=== PATIENT | male | born 1950 | race Caucasian/White ===

== ENCOUNTER 2022-09-23 11:21 | Inpatient (IN) ==
--- NOTE | 2022-09-23 11:58 | Emergency Department Note ---
History of Present Illness General Chief complaint: Fall Stated complaint: TROUBLE AMBULATING Time Seen by Provider: 09/23/22 11:55 History of Present Illness Maximum Pain Intensity: 5 This 72-year-old male patient presents to the emergency department via ambulance with his for evaluation after a fall 2 days ago. He states that he fell while carrying the [employer] tree up the front steps into the house. He states that he slipped and fell sideways onto the grass. He denies hitting his head and denies any loss of consciousness, but he is on Coumadin for Afib and h/o CVA. He is able to stand for a brief moment, but unable to tolerate any weightbearing on the right leg and has been unable to walk. Also has pain radiating into the right groin when attempting to stand. He has been mainly sitting on his recliner at home, but even that causes pain. Also having pain in the right shoulder and upper arm as well. Unable to move the right shoulder or arm because of the pain. He does have a history of right-sided hemiplegia from his previous CVA, but his range of motion is decreased even further since the fall. He is concerned for a right hip or pelvis fracture as well as a possible right upper arm fracture. He rates his pain as sharp and 5/10. He states that he stopped taking his Coumadin since after the fall. He has not seen anyone since the fall and the symptoms are getting progressively worse. Denies any neck or back pain. Denies any headache, change in his vision, change in his personality, or other neurologic symptoms. Took Tylenol and some old oxycodone with partial improvement of his pain. No previous fractures to the affected areas. No pain on the left side of his body. Denies any chest pain, SOB, abdominal pain, nausea, or vomiting. Denies any urinary symptoms and has not had a BM since the fall. PMH: iron deficiency anemia, Afib, h/o CVA 2011, Knox's Esophagus, Diabetes, CAD, hyperlipidemia, constipation, GERD, Pacemaker, Sick Sinus Syndrome, HTN, mucinous cystadenocarcinoma of the pancreas MEDS: NTG prn, Diltiazem CD, Crestor, Glucophage, Coumadin, Actos, Avodart, Prinivil, Digoxin, Flomax, Prilosec Home Medications Medication Instructions Recorded Confirmed Type acetaminophen 500 mg tablet 1,000 mg PO QAM 09/23/22 09/23/22 History (Tylenol Extra Strength) digoxin 250 mcg (0.25 mg) tablet 250 mg PO QAM 09/23/22 09/23/22 History diltiazem HCl 120 mg 120 mg PO BID 09/23/22 09/23/22 History capsule,extended release 24 hr dutasteride 0.5 mg capsule 0.5 mg PO QAM 09/23/22 09/23/22 History lisinopril 5 mg tablet 5 mg PO QAM 09/23/22 09/23/22 History metformin 1,000 mg tablet 1,000 mg PO BID 09/23/22 09/23/22 History nitroglycerin 0.4 mg sublingual 0.4 mg sublingual DIRECTED PRN 09/23/22 09/23/22 History tablet (Nitrostat) Chest Pain omeprazole 20 mg capsule,delayed 20 mg PO QAM 09/23/22 09/23/22 History release pioglitazone 30 mg tablet 30 mg PO QAM 09/23/22 09/23/22 History rosuvastatin 40 mg tablet 40 mg PO QAM 09/23/22 09/23/22 History tamsulosin 0.4 mg capsule (Flomax) 0.4 mg PO HS 09/23/22 09/23/22 History warfarin 2.5 mg tablet 2.5 mg PO QAM 09/23/22 09/23/22 History Allergies Allergy/AdvReac Type Severity Reaction Status Date / Time No Known Allergies Allergy Verified 09/23/22 16:12 Past Med/Surg History Medical History (Updated 09/23/22 @ 17:08 by Mai Velazquez PA-C) BPH (benign prostatic hyperplasia) CAD (coronary artery disease) Chronic atrial fibrillation DM II (diabetes mellitus, type II), controlled GERD (gastroesophageal reflux disease) History of embolic stroke LMCA 01/14/15 HLD (hyperlipidemia) HTN (hypertension) SSS (sick sinus syndrome) Surgical History (Updated 09/23/22 @ 16:00 by Mai Velazquez PA-C) S/P CABG x 1 1998 S/P cardiac pacemaker procedure Family History (Updated 09/23/22 @ 16:00 by Mai Velazquez PA-C) Mother Diabetes Cancer Father Cancer Sister Cancer Social History (Updated 09/23/22 @ 16:01 by Mai Velazquez PA-C) Smoking Status: Former smoker Tobacco Type: Cigarettes packs per day: 1; Smoking End Date: 2010; Do You Dip or Chew Tobacco: No; Hx Alcohol Use: Yes Hx Substance Use: No Preferred Language: Israeli Communication Ability: Effective [employer] Service [employer] Required: No Beliefs That Will Affect Care: None Current Living Situation: Spouse Feels Safe at Home: Yes Safety Concerns: Feels Safe At This Time Assistive Devices: Cane and Glasses Assistive Devices Comment: uses cane at home PRN Review of Systems See HPI for pertinent positives & negatives. and A total of 10 systems reviewed and were otherwise negative Physical Exam Vital Signs Vital Signs - 24 hr 09/23/22 11:33 09/23/22 16:00 Temperature 36.7 C Temperature Source Temporal Artery Scan Pulse Rate 83 Pulse Rate [Right Finger] 90 Respiratory Rate 18 14 Respiratory Effort / Characteristics Non-Labored Spontaneous Non-Labored Respiratory Depth Normal Normal Respiratory Pattern Regular Regular Blood Pressure 153/76 H Blood Pressure Mean 101 Blood Pressure Position Sitting Pulse Oximetry 96 91 Oxygen Delivery Method Room Air Room Air Sepsis Recent Fever Within 48 Hours No Sepsis New/Unexplained Change in Mental Status No Sepsis Action Taken by Nursing No Action Required VITALS: Vitals are noted on the nurse's note and reviewed by myself. GENERAL: 72-year-old male, in no acute distress, non-diaphoretic, well-developed well-nourished. SKIN: The skin was without obvious lacerations or abrasions. Capillary reflex less than 2 seconds. HEAD: Normocephalic atraumatic. EARS: External auditory canals clear, tympanic membranes pearly ritter without erythema or effusion bilaterally. No hemotympanum. No olivia sign. No mastoid tenderness. EYES: Pupils equal round and reactive to light and accommodation. Conjunctivae without injection, sclerae without icterus. Extraocular movements intact. NOSE: Patent, turbinates without inflammation or discharge. No sinus tenderness. No septal hematoma or bleeding. FACE: No facial bone tenderness. Full range of motion of the jaw without tenderness. MOUTH: Mucous membranes moist. Pharynx without erythema or exudate. Uvula midline. Airway patent. Tongue does not deviate. NECK: Supple without nuchal rigidity. Cervical spine is nontender. Full range of motion of the neck without tenderness. HEART: Regular rate and rhythm without murmurs gallops or rubs. LUNGS: Clear to auscultation bilaterally without wheezes, rales or rhonchi. No retractions or accessory muscle use. No chest wall tenderness. ABDOMEN: Positive bowel sounds x 4. Normal tympanic percussion. Soft, nontender, without masses or organomegaly. No guarding or rebound tenderness. MUSCULOSKELETAL: No tenderness of the thoracic or lumbar spine. No tenderness with pelvic rocking. Significantly tender to palpation over the right shoulder and mid to proximal right humerus. Unable to move the right shoulder due to pain. No tenderness to palpation of the right elbow, forearm, wrist, or hand. Full range of motion of the right elbow, wrist, and fingers, but it causes pain in the upper arm. He is also tender to palpation into the right groin. Significantly decreased range of motion of the right hip due to pain. No tenderness to palpation over the right femur, knee, tib-fib, ankle, or foot. No tenderness to palpation over the left-sided extremities. Peripheral pulses 2+. NEURO: Patient was alert and oriented to person place and time. Normal Mental status exam. Normal sensation to light and sharp touch. No focal neurological deficits. Course Administered Medications Acetaminophen (Acetaminophen 500 Mg Tab) 1,000 mg PO TID [facility] Stop: 10/23/22 20:59 Last Admin: 09/23/22 21:03 Dose: 1,000 mg Documented By: PURVI Bisacodyl (Bisacodyl 5 Mg Tabec) 5 mg PO BID [facility] Stop: 10/23/22 20:59 Last Admin: 09/23/22 21:04 Dose: 5 mg Documented By: PURVI Diltiazem HCl (Diltiazem Hcl 120 Mg Capcr) 120 mg PO BID [facility] Stop: 10/23/22 20:59 Last Admin: 09/23/22 21:04 Dose: 120 mg Documented By: PURVI Insulin Aspart (Insulin Aspart Per Unit) 0 units SC ACHS [facility] Stop: 10/23/22 20:59 Last Admin: 09/23/22 20:51 Dose: Not Given Documented By: PURVI Co-signed By: DP Morphine Sulfate (Morphine Sulfate 4 Mg/Ml 1 Ml Carp\Vial) 4 mg IV Q6H PRN PRN Reason: Severe pain, rating 8,9,10 Stop: 10/07/22 19:12 Last Admin: 09/23/22 20:59 Dose: 4 mg Documented By: PURVI Polyethylene Glycol (Polyethylene (Miralax) 17 Gm Pack) 17 gm PO DAILY ANA Stop: 10/23/22 19:12 Last Admin: 09/23/22 21:03 Dose: 17 gm Documented By: PURVI Tamsulosin HCl (Tamsulosin Hcl 0.4 Mg Cap) 0.4 mg PO HS ANA Stop: 10/23/22 20:59 Last Admin: 09/23/22 21:04 Dose: 0.4 mg Documented By: PURVI Discontinued Medications Fentanyl Citrate (Fentanyl Citrate 100 Mcg/2 Ml Vial) 50 mcg IV NOW STA Stop: 09/23/22 14:58 Last Admin: 09/23/22 15:34 Dose: Not Given Documented By: MERCEDEZ Fentanyl Citrate (Fentanyl Citrate 100 Mcg/2 Ml Vial) 50 mcg IV NOW STA Stop: 09/23/22 15:46 Last Admin: 09/23/22 16:14 Dose: 50 mcg Documented By: GORDON Ondansetron HCl (Ondansetron Inj 2 Mg/Ml 2 Ml Vial) 4 mg IV NOW STA Stop: 09/23/22 14:58 Last Admin: 09/23/22 15:34 Dose: Not Given Documented By: MERCEDEZ Ondansetron HCl (Ondansetron Inj 2 Mg/Ml 2 Ml Vial) 4 mg IV NOW STA Stop: 09/23/22 15:46 Last Admin: 09/23/22 16:14 Dose: 4 mg Documented By: GORDON Medical Decision Making Differential Diagnosis Differential diagnosis includes fracture, dislocation, subluxation, contusion, pneumothorax, intrathoracic injury, intracranial injury, neurologic, as well as other pathologies. Laboratory Data Attestation: I reviewed the patient's lab results. Result diagrams: 09/23/22 12:40 09/23/22 12:40 Lab Results 09/23/22 09/23/22 09/23/22 Range/Units 12:40 12:40 12:40 WBC 9.45 (4.8-10.8) K/ul RBC 4.72 (4.63-6.08) M/uL Hgb 11.2 L (14.0-18.0) g/dl Hct 35.4 L (40.1-51.0) % MCV 75.0 L (80.0-100.0) fL MCH 23.7 L (25.0-34.0) pg MCHC 31.6 L (32.0-36.0) g/dL RDW Std Deviation 49.7 H (36.4-46.3) fL RDW Coeff of Lonnie 18.8 H (11.5-14.5) % Plt Count 239 (130-400) K/uL MPV 9.1 L (9.4-12.4) fL Immature Gran % (Auto) 0.3 % Neut % (Auto) 81.7 % Lymph % (Auto) 9.5 % Cedar % (Auto) 7.6 % Eos % (Auto) 0.3 % Baso % (Auto) 0.6 % Neut # (Auto) 7.71 H (1.4-6.5) K/uL Lymph # (Auto) 0.90 L (1.2-3.4) K/uL Cedar # (Auto) 0.72 (0.24-0.82) K/uL Eos # (Auto) 0.03 (0-0.50) K/uL Baso # (Auto) 0.06 (0-0.2) K/uL Immature Gran # (Auto) 0.03 H (0.00-0.02) K/uL PT 31.1 H (9.0-12.0) Seconds INR 3.1 H (0.9-1.1) APTT 45.6 H* (21.0-31.0) Seconds PTT Ratio 1.7 Sodium 137 (136-145) mmol/L Potassium 4.1 (3.5-5.1) mmol/L Chloride 104 (98-107) mmol/L Carbon Dioxide 24 (21-32) mmol/L Anion Gap 9 (3-11) BUN 12 (6-23) mg/dl Creatinine 0.66 (0.6-1.4) mg/dl Est Cr Clr Drug Dosing 89.5 ml/min Est GFR ( Amer) 111.9 ml/min Est GFR (Non-Af Amer) 96.6 ml/min BUN/Creatinine Ratio 18.2 (10-20) Glucose 124 H (70-99(Fasting)) mg/dl Calcium 9.2 (8.5-10.1) mg/dl Imaging Data Radiologist's Impression: Chest X-Ray 09/23/22 12:18 SINGLE VIEW CHEST CLINICAL HISTORY: Fall. Dyspnea. FINDINGS: An AP, portable, upright chest radiograph is obtained. No prior studies are available for comparison at the time of dictation. The examination is degraded by portable technique and patient rotation. A single lead cardiac pacemaker partially obscures the right upper chest. The patient is status post midline sternotomy. The heart is enlarged. There is mild pulmonary vascular congestion. Trace pleural effusions are suspected. There is mild bibasilar scarring/atelectasis. No pneumothorax is seen. The skeletal structures are osteopenic. A right humeral head fracture is noted. IMPRESSION: 1. Cardiomegaly and cardiac pacemaker with mild pulmonary vascular congestion. 2. Suspect small pleural effusions. 3. Right humeral head fracture. ACT 112: Negative or not required by law. Electronically signed by: Andre Wallace M.D. 09/23/2022 2:[address] 09/23/22 12:18 CT head/brain wo con CLINICAL HISTORY: fall, coumadin therapy Technique: Contiguous axial CT images of the head were acquired from the base of the skull to the vertex without intravenous contrast administration. Images were viewed in brain, subdural and bone windows. Automated dose lowering techniques and/or adjustment according to patient size were utilized for this exam. Comparison: None available at the time of this dictation. Findings: Encephalomalacia is in the left frontal lobe. Imaged portions of the paranasal sinuses and mastoid air cells are clear. The orbits appear normal. There are no acute fractures of the calvaria or scalp swelling. Impression: No acute intracranial hemorrhage, no evidence of acute territorial infarction or other acute intracranial disease process. ACT 112: Negative or not required by law. Electronically signed by: Rubio Edmonds M.D. 09/23/2022 3:31 PM Hip/Pelvis X-Ray 09/23/22 12:18 XR hip RT 2V w pelvis CLINICAL HISTORY: fall, hip pain TECHNIQUE: 2 views of the right hip and single frontal view of the pelvis were obtained. Comparison: None available at the time of this dictation. FINDINGS: There is no evidence of an acute fracture. Degenerative changes are seen in the hip joint. No soft tissue abnormality is seen. IMPRESSION: Degenerative changes without evidence of acute abnormality. ACT 112: Negative or not required by law. Electronically signed by: Rubio Edmonds M.D. 09/23/2022 2:09 PM Humerus X-Ray 09/23/22 12:18 XR shoulder RT min 2V routine, XR humerus RT 2V CLINICAL HISTORY: fall, shoulder pain TECHNIQUE: 3 views of the right shoulder were obtained and 2 views of the right humerus were obtained. Comparison: None available at the time of this dictation. FINDINGS: Comminuted intra-articular fracture of the humeral head and neck is noted. The glenohumeral articulation is maintained Soft tissue swelling is seen about the shoulder. The visualized portions of the lungs are clear. IMPRESSION: Comminuted fracture of the humeral head and neck with surrounding soft tissue swelling. ACT 112: Negative or not required by law. Electronically signed by: Rubio Edmonds M.D. 09/23/2022 2:07 PM Shoulder X-Ray 09/23/22 12:18 XR shoulder RT min 2V routine, XR humerus RT 2V CLINICAL HISTORY: fall, shoulder pain TECHNIQUE: 3 views of the right shoulder were obtained and 2 views of the right humerus were obtained. Comparison: None available at the time of this dictation. FINDINGS: Comminuted intra-articular fracture of the humeral head and neck is noted. The glenohumeral articulation is maintained Soft tissue swelling is seen about the shoulder. The visualized portions of the lungs are clear. IMPRESSION: Comminuted fracture of the humeral head and neck with surrounding soft tissue swelling. ACT 112: Negative or not required by law. Electronically signed by: Rubio Edmonds M.D. 09/23/2022 2:07 PM MDM Narrative I examined the patient. An IV lock was placed and labs were drawn. The patient initially did not want any medication for pain, but then was given fentanyl 50 mcg IV and Zofran 4 mg IV later during his stay for his pain. Hemoglobin low at 11.2 which the patient states is around his normal. He is currently undergoing work-up for iron deficiency anemia through his PCP. INR 3.1 and a PTT 45.6 on Coumadin. However, he states that he has not taken his Coumadin since the fall. Glucose elevated at 124, but BMP otherwise unremarkable. I interpreted the imaging and agree with the radiologist's reading as per the data section of the note. Chest x-ray showed cardiomegaly and cardiac pacemaker with mild pulmonary vascular congestion and suspecting small pleural effusions. X-rays of the right shoulder and humerus showed a comminuted fracture of the humeral head and neck with surrounding soft tissue swelling. X-rays of the right hip and pelvis show nondisplaced fractures in the right and inferior pubic rami, but no fracture of the hip. CT scan of the head without contrast showed no acute intracranial etiology. I had a meaningful discussion about this patient with Dr. Mccrackne. They agree with my assessment and the treatment plan. The patient lives with his at home and has been unable to ambulate or or do his normal activities of daily living since the fall. The patient's does not feel that she can properly take care of the patient at home even with us getting him a wheelchair. I discussed the case with the on-call hospitalist who agreed to admit the patient for further evaluation and treatment. Please refer to their dictation for further details. The the patient's care was transferred in stable condition. Impression & Plan Fall, Fracture of multiple pubic rami, Fracture of head of right humerus, History of Coumadin therapy Discharge Plan Visit Data Chief Complaint: Fall Stated Complaint: TROUBLE AMBULATING ED Provider: Baljinder Mccracken ED Midlevel Provider: Flaquita Strong Discharge Problem: Fall, Fracture of multiple pubic rami, Fracture of head of right humerus, History of Coumadin therapy Patient Disposition: Admitted As Inpatient Condition: Good Discharge Instructions Interventions: ED Discharge Assessment Last Done: 09/23/22 19:12 : Fall Qualifiers: Encounter type: initial encounter Qualified Code(s): W19.XXXA - Unspecified fall, initial encounter Fracture of multiple pubic rami Qualifiers: Encounter type: initial encounter Fracture type: closed Laterality: right Qualified Code(s): S32.591A - Other specified fracture of right pubis, initial encounter for closed fracture Fracture of head of right humerus Qualifiers: Encounter type: initial encounter Fracture type: closed Qualified Code(s): S42.291A - Other displaced fracture of upper end of right humerus, initial encounter for closed fracture
[2022-09-23 12:52] LABS: Basophils # (auto) 0.06 K/uL (0-0.2); Basophils % (auto) 0.6 %; Eosinophils # (auto) 0.03 K/uL (0-0.50); Eosinophils % (auto) 0.3 %; Hematocrit (blood only) 35.4 % (40.1-51.0); Hemoglobin 11.2 g/dl (14.0-18.0); Immature Granulocytes # (auto) 0.03 K/uL (0.00-0.02); Immature Granulocytes % (auto) 0.3 %; Lymphocytes % (auto) 9.5 %; Mean Corpuscular Hemoglobin 23.7 pg (25.0-34.0); Mean Corpuscular Hgb Conc 31.6 g/dL (32.0-36.0); Mean Platelet Volume 9.1 fL (9.4-12.4); Monocytes # (auto) 0.72 K/uL (0.24-0.82); Monocytes % (auto) 7.6 %; Neutrophils # (auto) 7.71 K/uL (1.4-6.5); Neutrophils % (auto) 81.7 %; Platelet Count 239 K/uL (130-400); RDW Coefficient of Variation 18.8 % (11.5-14.5); RDW Standard Deviation 49.7 fL (36.4-46.3); Red Blood Count 4.72 M/uL (4.63-6.08); White Blood Count 9.45 K/ul (4.8-10.8)
[2022-09-23 13:18] LABS: INR 3.1 (0.9-1.1); Partial Thromboplastin Ratio 1.7; Prothrombin Time 31.1 Seconds (9.0-12.0)
[2022-09-23 13:32] LABS: BUN Creatinine Ratio 18.2 (10-20); Calcium 9.2 mg/dl (8.5-10.1); Creatinine Clr Calc Pharmacy 89.5 ml/min; Est GFR (African American) 111.9 ml/min; Est GFR (Non-African American) 96.6 ml/min; Potassium 4.1 mmol/L (3.5-5.1)
[2022-09-23 13:45] LABS: Partial Thromboplastin Time 45.6 Seconds (21.0-31.0)
--- NOTE | 2022-09-23 14:09 | XRay Report ---
XR shoulder RT min 2V routine, XR humerus RT 2V CLINICAL HISTORY: fall, shoulder pain TECHNIQUE: 3 views of the right shoulder were obtained and 2 views of the right humerus were obtained . Comparison: None available at the time of this dictation. FINDINGS: Comminuted intra-articular fracture of the humeral head and neck is noted. The glenohumeral articulat ion is maintained Soft tissue swelling is seen about the shoulder. The visualized portions of the marlee gs are clear. IMPRESSION: Comminuted fracture of the humeral head and neck with surrounding soft tissue swelling. ACT 112: Negative or not required by law. Electronically signed by: Rubio Edmonds M.D. 09/23/2022 2:07 PM
--- NOTE | 2022-09-23 14:11 | XRay Report ---
XR hip RT 2V w pelvis CLINICAL HISTORY: fall, hip pain TECHNIQUE: 2 views of the right hip and single frontal view of the pelvis were obtained. Comparison: None available at the time of this dictation. FINDINGS: There is no evidence of an acute fracture. Degenerative changes are seen in the hip joint. No soft ti ssue abnormality is seen. IMPRESSION: Degenerative changes without evidence of acute abnormality. ACT 112: Negative or not required by law. Electronically signed by: Rubio Edmonds M.D. 09/23/2022 2:09 PM
--- NOTE | 2022-09-23 14:14 | XRay Report ---
SINGLE VIEW CHEST CLINICAL HISTORY: Fall. Dyspnea. FINDINGS: An AP, portable, upright chest radiograph is obtained. No prior studies are available for c omparison at the time of dictation. The examination is degraded by portable technique and patient rot ation. A single lead cardiac pacemaker partially obscures the right upper chest. The patient is statu s post midline sternotomy. The heart is enlarged. There is mild pulmonary vascular congestion. Trace pleural effusions are suspected. There is mild bibasilar scarring/atelectasis. No pneumothorax is see n. The skeletal structures are osteopenic. A right humeral head fracture is noted. IMPRESSION: 1. Cardiomegaly and cardiac pacemaker with mild pulmonary vascular congestion. 2. Suspect small pleural effusions. 3. Right humeral head fracture. ACT 112: Negative or not required by law. Electronically signed by: Andre Wallace M.D. 09/23/2022 2:13 PM
[2022-09-23] MEDS ORDERED: fentaNYL citrate 100 MCG/2 ML VIAL IV STA ×2 (14:57→15:45)
[2022-09-23] MEDS ORDERED: ONDANSETRON INJ 2 MG/ML 2 ML VIAL IV STA ×2 (14:57→15:45)
--- NOTE | 2022-09-23 15:33 | CT Scan Report ---
CT head/brain wo con CLINICAL HISTORY: fall, coumadin therapy Technique: Contiguous axial CT images of the head were acquired from the base of the skull to the tamera namrata without intravenous contrast administration. Images were viewed in brain, subdural and bone [facility] ws. Automated dose lowering techniques and/or adjustment according to patient size were utilized for this exam. Comparison: None available at the time of this dictation. Findings: Encephalomalacia is in the left frontal lobe. Imaged portions of the paranasal sinuses and mastoid air cells are clear. The orbits appear normal. There are no acute fractures of the calvaria or scalp swelling. Impression: No acute intracranial hemorrhage, no evidence of acute territorial infarction or other acute intracra nial disease process. ACT 112: Negative or not required by law. Electronically signed by: Rubio Edmonds M.D. 09/23/2022 3:31 PM
--- NOTE | 2022-09-23 16:07 | History & Physical Report ---
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 after midnight in case of surgical procedure tomorrow morning -INR is 3.1, patient stopped taking this 2 days ago after his initial fall, can consider 2.5 mg IV vitamin K if Ortho deems to proceed with surgery tomorrow. -Patient has 50% functionality of the right and lower extremity secondary to CVA in 2010, he is unsure if he would want surgical procedure in general. -PT/OT consults -Pain control with Tylenol [id number], oxycodone as needed, IV morphine sulfate prn for breakthrough pain only -Bowel regimen ordered -Continue (4) Chronic atrial fibrillation: (5) Anticoagulated on warfarin: Plan: - Hx of such, holding coumadin x 2 days so far, can reverse INR with Vit K if planned surgery, if not then continue coumadin pending INR level tomorrow (6) HTN (hypertension): Plan: - Cont digoxin, diltiazem, lisinopril (7) HLD (hyperlipidemia): Plan: - Cont statin therapy - Check lipids with am labs (8) CAD (coronary artery disease): Plan: - hx of CABG x 1 vessel in 1998 - hx of smoking but quit in 2010, alcohol use of 1 drink per week - Continue antihypertensives as above - s/p SSS with cardiac pacemaker in place (9) DM II (diabetes mellitus, type II), controlled: Plan: - Check A1c with a.m. labs -Holding metformin and pioglitazone -ISS with Accu-Cheks ACHS -Allow heart healthy diabetic diet (10) BPH (benign prostatic hyperplasia): Plan: -Continue Flomax and dutasteride (11) GERD (gastroesophageal reflux disease): Plan: -Continue omeprazole 20 mg daily DVT PPx: - teds, scds, holding Coumadin as above secondary to possible surgical procedure CODE: DNR/DNI Dispo: From home, likely to remain in the hospital x 1-2 days, case management to assist with discharge planning for PT/OT and possible inpatient rehab stay History of Present Illness Chief Complaint: Fall 2 days ago Primary Care Provider: Yessica Avila, This is a 72 with PMHx CAD, chronic A. fib on Coumadin, HTN, HLD, history of SSS status post cardiac pacemaker, DM type II, GERD, BPH, hx of CVA in 2010 with right sided hemiplegia, who presents today after a fall he sustained 2 days ago while attempting to bring a [employer] tree inside his home. He denies any preceding lightheadedness, dizziness or LOC or hitting of the head with the fall. Patient fell onto his right side, and has had very much difficulty walking over the past 2 days and doing anything with his right arm. He has been able to toe touch weight bear with the right leg, and uses a cane at baseline. He can walk upwards of 1 mile at a time prior to this event. Pt notes he has also not been able do much on his own, even getting dressed due to the right shoulder pain is difficult. Pt has been using a few oxycodone tablets at home to help with the pain. Upon imaging studies, he is found to have a right humeral head fracture as well as a right-sided pubic rami fracture. INR is elevated at 3.1 upon admission, but the patient stopped taking his Coumadin 2 days ago after his fall. Typically takes 2.5 mg daily. Allergies Allergy/AdvReac Type Severity Reaction Status Date / Time No Known Allergies Allergy Verified 09/23/22 16:12 Home Medications Medication Instructions Recorded Confirmed Type acetaminophen 500 mg tablet 1,000 mg PO QAM 09/23/22 09/23/22 History (Tylenol Extra Strength) digoxin 250 mcg (0.25 mg) tablet 250 mg PO QAM 09/23/22 09/23/22 History diltiazem HCl 120 mg 120 mg PO BID 09/23/22 09/23/22 History capsule,extended release 24 hr dutasteride 0.5 mg capsule 0.5 mg PO QAM 09/23/22 09/23/22 History lisinopril 5 mg tablet 5 mg PO QAM 09/23/22 09/23/22 History metformin 1,000 mg tablet 1,000 mg PO BID 09/23/22 09/23/22 History nitroglycerin 0.4 mg sublingual 0.4 mg sublingual DIRECTED PRN 09/23/22 09/23/22 History tablet (Nitrostat) Chest Pain omeprazole 20 mg capsule,delayed 20 mg PO QAM 09/23/22 09/23/22 History release pioglitazone 30 mg tablet 30 mg PO QAM 09/23/22 09/23/22 History rosuvastatin 40 mg tablet 40 mg PO QAM 09/23/22 09/23/22 History tamsulosin 0.4 mg capsule (Flomax) 0.4 mg PO HS 09/23/22 09/23/22 History warfarin 2.5 mg tablet 2.5 mg PO QAM 09/23/22 09/23/22 History Past Med/Surg History Medical History (Updated 09/23/22 @ 17:08 by Mai Velazquez PA-C) BPH (benign prostatic hyperplasia) CAD (coronary artery disease) Chronic atrial fibrillation DM II (diabetes mellitus, type II), controlled GERD (gastroesophageal reflux disease) History of embolic stroke LMCA 01/14/15 HLD (hyperlipidemia) HTN (hypertension) SSS (sick sinus syndrome) Surgical History (Updated 09/23/22 @ 16:00 by Mai Velazquez PA-C) S/P CABG x 1 1998 S/P cardiac pacemaker procedure Family History (Updated 09/23/22 @ 16:00 by Mai Velazquez PA-C) Mother Diabetes Cancer Father Cancer Sister Cancer Social History (Updated 09/23/22 @ 16:01 by Mai Velazquez PA-C) Smoking Status: Former smoker Tobacco Type: Cigarettes packs per day: 1; Smoking End Date: 2010; Hx Alcohol Use: Yes Hx Substance Use: No Feels Safe at Home: Yes Review of Systems Review of Systems: Constitutional: No fever, sweats or chills Eyes: No diplopia, no worsening or blurred vision ENT: normal hearing, no trouble swallowing Respiratory: No cough, sputum, dyspnea at rest or on exertion Cardiovascular: No chest pain, tightness or palpitations Abdomen: No pain, nausea, vomiting, diarrhea or constipation Musculoskeletal: + Severe right shoulder pain with movement, + Difficulty walking, pain with weight bearing on the right hip. Otherwise, no joint pain, calf pain, swelling Neurologic: +hx of CVA with right sided hemiplegia, chronic right sided weakness, no numbness/tingling, + chronic balance problems Psychiatric: No anxiety or depression Skin: No rash or itch Physical Exam Physical Exam: General: awake, alert, no apparent distress Head: Normocephalic, atraumatic ENT: PERRL, EOMI, no pharyngeal exudate, mucous membranes moist Chest: Clear to auscultation, on room air, no adventitious breath sounds Cardiac: Regular rate and rhythm, no murmur, no JVD, normal peripheral pulses, good capillary refill Abdominal: NABS x 4 quadrants, soft, nondistended, nontender to palpation, no rebound or guarding Extremities: Ecchymosis of the medial biceps RUE, + Pain with minimal movement of the right upper extremity, Atrophy of muscles of the RUE. Otherwise Normal inspection, no peripheral edema or erythema, calfs nontender to palpation Psych: Normal mood and affect Neuro: AAO x 3, strength intact bilaterally and rated 3/5 RUE, 5/5 LUE, gait is not assessed due to pubic rami fracture, speech is clear, no peripheral sensory deficits Results & Data Results & Data ([facility]) Vital Signs (Past 12 Hours) Vital Signs Temp Pulse Resp BP Pulse Ox O2 Del Method 09/23/22 11:33 36.7 C 83 18 153/76 H 96 Room Air Laboratory Results 09/23/22 09/23/22 09/23/22 12:40 12:40 12:40 WBC 9.45 RBC 4.72 Hgb 11.2 L Hct 35.4 L MCV 75.0 L MCH 23.7 L MCHC 31.6 L RDW Std Deviation 49.7 H RDW Coeff of Lonnie 18.8 H Plt Count 239 MPV 9.1 L Immature Gran % (Auto) 0.3 Neut % (Auto) 81.7 Lymph % (Auto) 9.5 [place] % (Auto) 7.6 Eos % (Auto) 0.3 Baso % (Auto) 0.6 Neut # (Auto) 7.71 H Lymph # (Auto) 0.90 L [place] # (Auto) 0.72 Eos # (Auto) 0.03 Baso # (Auto) 0.06 Immature Gran # (Auto) 0.03 H PT 31.1 H INR 3.1 H APTT 45.6 H* PTT Ratio 1.7 Sodium 137 Potassium 4.1 Chloride 104 Carbon Dioxide 24 Anion Gap 9 BUN 12 Creatinine 0.66 Est Cr Clr Drug Dosing 89.5 Est GFR ( Amer) 111.9 Est GFR (Non-Af Amer) 96.6 BUN/Creatinine Ratio 18.2 Glucose 124 H Calcium 9.2 Diagnostic Findings Chest X-Ray 09/23/22 12:18 SINGLE VIEW CHEST CLINICAL HISTORY: Fall. Dyspnea. FINDINGS: An AP, portable, upright chest radiograph is obtained. No prior studies are available for comparison at the time of dictation. The examination is degraded by portable technique and patient rotation. A single lead cardiac pacemaker partially obscures the right upper chest. The patient is status post midline sternotomy. The heart is enlarged. There is mild pulmonary vascular congestion. Trace pleural effusions are suspected. There is mild bibasilar scarring/atelectasis. No pneumothorax is seen. The skeletal structures are osteopenic. A right humeral head fracture is noted. IMPRESSION: 1. Cardiomegaly and cardiac pacemaker with mild pulmonary vascular congestion. 2. Suspect small pleural effusions. 3. Right humeral head fracture. ACT 112: Negative or not required by law. Electronically signed by: Andre Wallace M.D. 09/23/2022 2:[address] 09/23/22 12:18 CT head/brain wo con CLINICAL HISTORY: fall, coumadin therapy Technique: Contiguous axial CT images of the head were acquired from the base of the skull to the vertex without intravenous contrast administration. Images were viewed in brain, subdural and bone windows. Automated dose lowering techniques and/or adjustment according to patient size were utilized for this exam. Comparison: None available at the time of this dictation. Findings: Encephalomalacia is in the left frontal lobe. Imaged portions of the paranasal sinuses and mastoid air cells are clear. The orbits appear normal. There are no acute fractures of the calvaria or scalp swelling. Impression: No acute intracranial hemorrhage, no evidence of acute territorial infarction or other acute intracranial disease process. ACT 112: Negative or not required by law. Electronically signed by: Rubio Edmonds M.D. 09/23/2022 3:31 PM Hip/Pelvis X-Ray 09/23/22 12:18 XR hip RT 2V w pelvis CLINICAL HISTORY: fall, hip pain TECHNIQUE: 2 views of the right hip and single frontal view of the pelvis were obtained. Comparison: None available at the time of this dictation. FINDINGS: There is no evidence of an acute fracture. Degenerative changes are seen in the hip joint. No soft tissue abnormality is seen. IMPRESSION: Degenerative changes without evidence of acute abnormality. ACT 112: Negative or not required by law. Electronically signed by: Rubio Edmonds M.D. 09/23/2022 2:09 PM Humerus X-Ray 09/23/22 12:18 XR shoulder RT min 2V routine, XR humerus RT 2V CLINICAL HISTORY: fall, shoulder pain TECHNIQUE: 3 views of the right shoulder were obtained and 2 views of the right humerus were obtained. Comparison: None available at the time of this dictation. FINDINGS: Comminuted intra-articular fracture of the humeral head and neck is noted. The glenohumeral articulation is maintained Soft tissue swelling is seen about the shoulder. The visualized portions of the lungs are clear. IMPRESSION: Comminuted fracture of the humeral head and neck with surrounding soft tissue swelling. ACT 112: Negative or not required by law. Electronically signed by: Rubio Edmonds M.D. 09/23/2022 2:07 PM Shoulder X-Ray 09/23/22 12:18 XR shoulder RT min 2V routine, XR humerus RT 2V CLINICAL HISTORY: fall, shoulder pain TECHNIQUE: 3 views of the right shoulder were obtained and 2 views of the right humerus were obtained. Comparison: None available at the time of this dictation. FINDINGS: Comminuted intra-articular fracture of the humeral head and neck is noted. The glenohumeral articulation is maintained Soft tissue swelling is seen about the shoulder. The visualized portions of the lungs are clear. IMPRESSION: Comminuted fracture of the humeral head and neck with surrounding soft tissue swelling. ACT 112: Negative or not required by law. Electronically signed by: Rubio Edmonds M.D. 09/23/2022 2:07 PM Code Status & VTE Plan Code Status DNR/DNI - discussed with the patient and his at bedside Supervising Physician Co-Signing Physician Notes 72-year-old man with PMH of T2DM, mucinous cyst adenocarcinoma pancreas, CAD status post CABG 1998 and stent 2010, sick sinus syndrome, chronic A. fib, co ronary arthrosclerosis, HTN, GERD, BPH, CVA with residual right-sided hemiparesis presented to our ED 09/23 after sustaining fall by slipping on stairs step 2 days ago [facility]. Patient reports pain at right shoulder/arm bearable when not moving and exacerbated pain even with slight movement. Labs are reviewed, hemoglobin around baseline, INR 3.1, electrolytes WNL. Chest x-ray with mild pulmonary vascular congestion, right humerus fracture and inferior pubic rami fracture noted. Orthopedics consult. Pain management, bowel regimen, n.p.o. midnight until orthopedic evaluation in AM. RCRI index of class IV risks with 15% risks of 30-day risks of or NC or cardiac arrest if plan is to go with surgery given history of CAD and stroke. No previous diagnosis of CHF. 2020 echo with EF of 55 to 60% with normal left ventricular size and ejection fraction. Continue to hold warfarin for now, if orthopedics plan to proceed with surgery then 2.5 Mg IV vitamin K. On examination: GENERAL: Alert and oriented x3. NAD, on RA. HEENT: No pallor, no icterus. Pupils equal, round and reactive to light. Oral mucosa moist. NECK: No JVD, no neck masses. HEART: S1 and S2 heard. Regular rate and rhythm. No murmur, no gallop. RESPIRATORY SYSTEM: Normal AP diameter. No accessory muscle use. No wheezing, no crackles. ABDOMEN: Soft, bowel sounds present, nontender, no distention. CENTRAL NERVOUS SYSTEM: No facial droop. Speech is clear. Obeys simple commands. Moves extremities. EXTREMITIES: No edema, no erythema seen. Rt extremity flexed and rested on top of chest, medial aspect of arm w/ bruise, decreased ROM w/ pain. I have seen and examined the patient and have discussed the case with the provider above. I agree with the assessment and plan as stated. (1) Fracture of multiple pubic rami Encounter type: initial encounter Fracture type: closed Laterality: right Qualified Code(s): S32.591A - Other specified fracture of right pubis, initial encounter for closed fracture (2) Fracture of head of right humerus Encounter type: initial encounter Fracture type: closed Qualified Code(s): S42.291A - Other displaced fracture of upper end of right humerus, initial encounter for closed fracture (3) Fall Encounter type: initial encounter Qualified Code(s): W19.XXXA - Unspecified fall, initial encounter
[2022-09-23] MEDS ORDERED: GLUCAGON FOR INJ 1 MG VIAL SQ PRN (19:13)
[2022-09-23] MEDS ORDERED: CARBOHYDRATES FOR HYPOGLYCEMIA PO PRN (19:13)
[2022-09-23] MEDS ORDERED: GLUCOSE 40% GEL 15 GM TUBE PO PRN (19:13)
[2022-09-23] MEDS ORDERED: ONDANSETRON INJ 2 MG/ML 2 ML VIAL IV PRN (19:13)
[2022-09-23] MEDS ORDERED: DEXTROSE 50% 50 ML SYRINGE IV PRN (19:13)
[2022-09-23] MEDS ORDERED: GLUCOSE 10 TAB/TUBE PO PRN (19:13)
[2022-09-23] MEDS: MoRPHine SULFATE 4 MG/ML 1 ML CARP\\VIAL IV PRN (20:59)
[2022-09-23] MEDS ORDERED: INSULIN ASPART PER UNIT SC SCH (21:00)
[2022-09-23] MEDS: ACETAMINOPHEN 500 MG TAB PO SCH (21:03)
[2022-09-23] MEDS: POLYETHYLENE (MIRALAX) 17 GM PACK PO SCH (21:03)
[2022-09-23] MEDS: TAMSULOSIN HCL 0.4 MG CAP PO SCH (21:04)
[2022-09-23] MEDS: dilTIAZem HCL 120 MG CAPCR PO SCH (21:04)
[2022-09-23] MEDS: bisacodyL 5 MG TABEC PO SCH (21:04)
[2022-09-23] MEDS: oxyCODONE HCL IR 5 MG TAB (IMMEDIATE RELEASE) PO PRN (22:46)
[2022-09-23] MEDS: DUTASTERIDE - ORDER AWAITING ACTION SCH (23:01)
[2022-09-24] MEDS: MoRPHine SULFATE 4 MG/ML 1 ML CARP\\VIAL IV PRN ×3 (04:19→23:16)
[2022-09-24] MEDS: oxyCODONE HCL IR 5 MG TAB (IMMEDIATE RELEASE) PO PRN ×3 (06:00→19:49)
[2022-09-24] MEDS: INSULIN ASPART PER UNIT SC SCH ×4 (06:00→20:02)
[2022-09-24 08:08] LABS: Hematocrit (blood only) 34.8 % (40.1-51.0); Mean Corpuscular Hemoglobin 23.9 pg (25.0-34.0); Mean Corpuscular Hgb Conc 31.6 g/dL (32.0-36.0); Mean Corpuscular Volume 75.5 fL (80.0-100.0); Mean Platelet Volume 9.5 fL (9.4-12.4); Platelet Count 218 K/uL (130-400); RDW Coefficient of Variation 18.5 % (11.5-14.5); RDW Standard Deviation 49.6 fL (36.4-46.3); Red Blood Count 4.61 M/uL (4.63-6.08); White Blood Count 6.94 K/ul (4.8-10.8)
[2022-09-24 08:20] LABS: INR 2.3 (0.9-1.1); Prothrombin Time 23.5 Seconds (9.0-12.0)
[2022-09-24 08:28] LABS: BUN Creatinine Ratio 13.1 (10-20); Calcium 8.6 mg/dl (8.5-10.1); Chol HDL Ratio 1.8 (0-5); Creatinine Clr Calc Pharmacy 96.8 ml/min; Est GFR (African American) 115.6 ml/min; Est GFR (Non-African American) 99.8 ml/min; Potassium 4.4 mmol/L (3.5-5.1)
[2022-09-24 08:49] LABS: Estimated Average Glucose 140 mg/dl; Hemoglobin A1C 6.5 % (4.5-5.6)
[2022-09-24] MEDS: DUTASTERIDE - ORDER AWAITING ACTION SCH ×3 (09:19→20:03)
[2022-09-24] MEDS: ACETAMINOPHEN 500 MG TAB PO SCH ×3 (09:25→20:05)
[2022-09-24] MEDS: bisacodyL 5 MG TABEC PO SCH ×2 (09:25→20:06)
[2022-09-24] MEDS: PANTOprazole 40 MG TAB PO SCH (09:26)
[2022-09-24] MEDS: ROSUVASTATIN CALCIUM 20 MG TAB PO SCH (09:26)
[2022-09-24] MEDS: POLYETHYLENE (MIRALAX) 17 GM PACK PO SCH (09:26)
[2022-09-24] MEDS: dilTIAZem HCL 120 MG CAPCR PO SCH ×2 (09:26→20:01)
[2022-09-24] MEDS: lisinopril 5 MG TAB PO SCH (09:26)
--- NOTE | 2022-09-24 13:11 | Consultation Report ---
HISTORY OF PRESENT ILLNESS: The patient is a 72-year-old male tripped while going up the steps. Pre sents with a minimally to nondisplaced right proximal humerus fracture and right superior and inferio r pubic ramus fracture. He has no other complaints today. Had no other syncopal episode or other is sues. Spoke with he and his , who is a nurse at bedside. Discussed the OT, PT to get him up and get him mobilized so we can get him discharged. She is comfortable taking care of him at home. We will make arrangements for a sling for a proximal humerus fracture and ambulation with weightbearing as tolerated for his pubic ramus fracture and follow up as an outpatient. ASSESSMENT: Fracture of proximal humerus. Satisfactory alignment position, sling, weightbearing as t olerated for pubic ramus fracture. Job ID: [id number]
--- NOTE | 2022-09-24 14:45 | Hospitalist Progress Note ---
Date of Service September 24, 2022 Assessment & Plan (1) Fall: (2) Fracture of head of right humerus: (3) Fracture of multiple pubic rami: Plan: -Fall sounds to be mechanical secondary to history of CVA with residual right- sided paresis, no lightheadedness ,dizziness or LOC, no injury to the head sustained -Imaging reviewed:Nondisplaced fracture within the right and inferior pubic rami, Right humeral head fracture -Ortho evaled, WBAT for pubic rami #, sling for humerus #. f/u ortho as OP. -PT/OT consults, CM to assist w/ DC planning. -Pain control with Tylenol [id number], oxycodone as needed, IV morphine sulfate prn for breakthrough pain only -Bowel regimen ordered -Continue (4) Chronic atrial fibrillation: (5) Anticoagulated on warfarin: Plan: - Hx of such, c/w home warfarin. (6) HTN (hypertension): Plan: - Cont digoxin, diltiazem, lisinopril (7) HLD (hyperlipidemia): Plan: - Cont statin therapy - Check lipids with am labs (8) CAD (coronary artery disease): Plan: - hx of CABG x 1 vessel in 1998 - hx of smoking but quit in 2010, alcohol use of 1 drink per week - Continue antihypertensives as above - s/p SSS with cardiac pacemaker in place (9) DM II (diabetes mellitus, type II), controlled: Plan: - Check A1c with a.m. labs -Holding metformin and pioglitazone -ISS with Accu-Cheks ACHS -Allow heart healthy diabetic diet (10) BPH (benign prostatic hyperplasia): Plan: -Continue Flomax and dutasteride (11) GERD (gastroesophageal reflux disease): Plan: -Continue omeprazole 20 mg daily DVT PPx: - teds, scds, holding Coumadin as above secondary to possible surgical procedure CODE: DNR/DNI Dispo: From home, likely to remain in the hospital x 1-2 days, case management to assist with discharge planning for PT/OT and possible inpatient rehab stay Admission and Anticipated Discharge Date Admission Date: September 23, 2022 Subjective Patient seen and examined at bedside as a follow-up of mechanical fall and fracture of head of right humerus. Patient was lying in bed, on room air, reports pain with movement on his right upper extremity, patient was n.p.o. until orthopedic evaluation, starting him on diet as no plan for interventional management. Patient to continue with bowel regimen as he will be needing more for his pain management as he has history of constipation. Patient offers no other complaints. Physical Exam Physical Exam: GENERAL: Alert and oriented x3. NAD, on RA. HEENT: No pallor, no icterus. Pupils equal, round and reactive to light. Oral mucosa moist. NECK: No JVD, no neck masses. HEART: S1 and S2 heard. Regular rate and rhythm. No murmur, no gallop. RESPIRATORY SYSTEM: Normal AP diameter. No accessory muscle use. No wheezing, no crackles. ABDOMEN: Soft, bowel sounds present, nontender, no distention. CENTRAL NERVOUS SYSTEM: No facial droop. Speech is clear. Obeys simple commands. Moves extremities. EXTREMITIES: No edema, no erythema seen. Rt extremity flexed and rested on top of chest, medial aspect of arm w/ bruise, decreased ROM w/ pain. Results & Data Results & Data ([facility]) Vital Signs (Past 12 Hours) Vital Signs Temp Pulse Pulse Resp BP Pulse Ox O2 Del Method 09/24/22 12:00 37.7 C H 92 H 18 132/68 95 Nasal Cannula 09/24/22 08:00 79 09/24/22 08:01 37.0 C 86 18 134/72 95 Nasal Cannula 09/24/22 04:12 37.4 C 70 18 131/70 93 Nasal Cannula O2 Flow Rate 09/24/22 12:00 09/24/22 08:00 09/24/22 08:01 2 09/24/22 04:12 1 (1) Fall Encounter type: initial encounter Qualified Code(s): W19.XXXA - Unspecified fall, initial encounter (2) Fracture of head of right humerus Encounter type: initial encounter Fracture type: closed Qualified Code(s): S42.291A - Other displaced fracture of upper end of right humerus, initial encounter for closed fracture (3) Fracture of multiple pubic rami Encounter type: initial encounter Fracture type: closed Laterality: right Qualified Code(s): S32.591A - Other specified fracture of right pubis, initial encounter for closed fracture
[2022-09-24] MEDS ORDERED: WARFARIN SOD 2.5 MG TAB PO SCH (16:00)
[2022-09-24] MEDS ORDERED: DIGOXIN 0.25 MG TAB PO SCH (16:00)
[2022-09-24] MEDS: TAMSULOSIN HCL 0.4 MG CAP PO SCH (20:02)
[2022-09-25] MEDS: oxyCODONE HCL IR 5 MG TAB (IMMEDIATE RELEASE) PO PRN ×2 (05:56→14:09)
[2022-09-25 07:19] LABS: Hematocrit (blood only) 35.1 % (40.1-51.0); Hemoglobin 11.3 g/dl (14.0-18.0); Mean Corpuscular Hemoglobin 23.8 pg (25.0-34.0); Mean Corpuscular Hgb Conc 32.2 g/dL (32.0-36.0); Mean Corpuscular Volume 74.1 fL (80.0-100.0); Mean Platelet Volume 9.6 fL (9.4-12.4); Platelet Count 230 K/uL (130-400); RDW Coefficient of Variation 18.2 % (11.5-14.5); RDW Standard Deviation 48.4 fL (36.4-46.3); Red Blood Count 4.74 M/uL (4.63-6.08); White Blood Count 7.55 K/ul (4.8-10.8)
[2022-09-25 07:31] LABS: INR 1.9 (0.9-1.1)
[2022-09-25 07:51] LABS: BUN Creatinine Ratio 24.2 (10-20); Calcium 8.5 mg/dl (8.5-10.1); Creatinine Clr Calc Pharmacy 95.1 ml/min; Est GFR (African American) 114.9 ml/min; Est GFR (Non-African American) 99.1 ml/min; Potassium 4.2 mmol/L (3.5-5.1)
[2022-09-25] MEDS: PANTOprazole 40 MG TAB PO SCH (08:02)
[2022-09-25] MEDS: dilTIAZem HCL 120 MG CAPCR PO SCH (08:02)
[2022-09-25] MEDS: DUTASTERIDE - ORDER AWAITING ACTION SCH (08:02)
[2022-09-25] MEDS: ROSUVASTATIN CALCIUM 20 MG TAB PO SCH (08:03)
[2022-09-25] MEDS: lisinopril 5 MG TAB PO SCH (08:03)
[2022-09-25] MEDS: ACETAMINOPHEN 500 MG TAB PO SCH ×2 (08:05→14:09)
[2022-09-25] MEDS: bisacodyL 5 MG TABEC PO SCH (08:05)
[2022-09-25] MEDS: POLYETHYLENE (MIRALAX) 17 GM PACK PO SCH (08:06)
[2022-09-25] MEDS: MoRPHine SULFATE 4 MG/ML 1 ML CARP\\VIAL IV PRN (08:13)
[2022-09-25] MEDS: INSULIN ASPART PER UNIT SC SCH ×2 (09:22→12:20)
--- NOTE | 2022-09-25 11:53 | Discharge Summary ---
Discharge Summary Date of Service September 25, 2022 Notes For Next Care Provider Needs to follow up with orthopedic outpatient Medication Changes From Visit Discharged on prn oxycodone for severe pain not controlled by tylenol Admission HPI Per Admitting Provider This is a 72 with PMHx CAD, chronic A. 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 He denies any preceding lightheadedness, dizziness or LOC or hitting of the head with the fall. Patient fell onto his right side, and has had very much difficulty walking over the past 2 days and doing anything with his right arm. He has been able to toe touch weight bear with the right leg, and uses a cane at baseline. He can walk upwards of 1 mile at a time prior to this event. Pt notes he has also not been able do much on his own, even getting dressed due to the right shoulder pain is difficult. Pt has been using a few oxycodone tablets at home to help with the pain. Upon imaging studies, he is found to have a right humeral head fracture as well as a right-sided pubic rami fracture. INR is elevated at 3.1 upon admission, but the patient stopped taking his Coumadin 2 days ago after his fall. Typically takes 2.5 mg daily. Admission Exam Per Admitting Provider General: awake, alert, no apparent distress Head: Normocephalic, atraumatic ENT: PERRL, EOMI, no pharyngeal exudate, mucous membranes moist Chest: Clear to auscultation, on room air, no adventitious breath sounds Cardiac: Regular rate and rhythm, no murmur, no JVD, normal peripheral pulses, good capillary refill Abdominal: NABS x 4 quadrants, soft, nondistended, nontender to palpation, no rebound or guarding Extremities: Ecchymosis of the medial biceps RUE, + Pain with minimal movement of the right upper extremity, Atrophy of muscles of the RUE. Otherwise Normal inspection, no peripheral edema or erythema, calfs nontender to palpation Psych: Normal mood and affect Neuro: AAO x 3, strength intact bilaterally and rated 3/5 RUE, 5/5 LUE, gait is not assessed due to pubic rami fracture, speech is clear, no peripheral sensory deficits Principal Dx & Hospital Course #1 = Principal Diagnosis (1) Fall: (2) Fracture of head of right humerus: (3) Fracture of multiple pubic rami: Mechanical fall History of CVA with residual right-sided paresis, no lightheadedness ,dizziness or LOC, no injury to the head sustained Imaging reviewed:Nondisplaced fracture within the right and inferior pubic rami, Right humeral head fracture Ortho evaluated. No surgical intervention recommended. WBAT for pubic rami fracture and sling for right humerus fracture. Patient to follow up with ortho outpatient Home devices prescription had been provided Discharged on prn tylenol for pain and oxycodone for severe pain not controlled by tylenol (4) Chronic atrial fibrillation: (5) Anticoagulated on warfarin: Continue with home warfarin. (6) HTN (hypertension): Continue home medications (7) HLD (hyperlipidemia): Continue home statin therapy (8) CAD (coronary artery disease): Hx of CABG x 1 vessel in 1998 Hx of smoking but quit in 2010, alcohol use of 1 drink per week s/p SSS with cardiac pacemaker in place (9) DM II (diabetes mellitus, type II), controlled: A1c is 6.5 Continue home metformin and pioglitazone (10) BPH (benign prostatic hyperplasia): Continue Flomax and dutasteride (11) GERD (gastroesophageal reflux disease): Continue omeprazole 20 mg daily Discharge Exam Constitutional + well hydrated; no acute distress Eyes PERRL, conjunctivae normal, anicteric sclerae ENMT external ear and nose normal, oropharynx normal Respiratory normal respiratory effort, lungs clear to auscultation Cardiovascular Rate/Rhythm: + irregularly irregular S1 S2 Gastrointestinal (Abdomen) normal bowel sounds, soft, nontender, no hepatosplenomegaly Musculoskeletal RUE in sling No pedal edema Neurologic PERRL, EOMI, accommodation nl, no face palsy, no dysarthria Psychiatric A+Ox3, euthymic affect Updated Medication List Medication Instructions Recorded Confirmed Type acetaminophen 500 mg tablet 1,000 mg PO QAM 09/23/22 09/23/22 History (Tylenol Extra Strength) digoxin 250 mcg (0.25 mg) tablet 250 mg PO QAM 09/23/22 09/23/22 History diltiazem HCl 120 mg 120 mg PO BID 09/23/22 09/23/22 History capsule,extended release 24 hr dutasteride 0.5 mg capsule 0.5 mg PO QAM 09/23/22 09/23/22 History lisinopril 5 mg tablet 5 mg PO QAM 09/23/22 09/23/22 History metformin 1,000 mg tablet 1,000 mg PO BID 09/23/22 09/23/22 History nitroglycerin 0.4 mg sublingual 0.4 mg sublingual DIRECTED PRN 09/23/22 09/23/22 History tablet (Nitrostat) Chest Pain omeprazole 20 mg capsule,delayed 20 mg PO QAM 09/23/22 09/23/22 History release pioglitazone 30 mg tablet 30 mg PO QAM 09/23/22 09/23/22 History rosuvastatin 40 mg tablet 40 mg PO QAM 09/23/22 09/23/22 History tamsulosin 0.4 mg capsule (Flomax) 0.4 mg PO HS 09/23/22 09/23/22 History warfarin 2.5 mg tablet 2.5 mg PO QAM 09/23/22 09/23/22 History oxycodone 5 mg tablet 5 mg PO Q6H PRN moderate to severe 09/25/22 Rx pain #28 tabs Hospital Stay Data Consultations 09/23/22 16:12 ED Decision to Admit Stat 09/23/22 17:02 Consult Orthopedic Surgery Routine Diagnostic Imagining Performed 09/23/22 12:18 CT head/brain wo con Stat Pending Results Patient Have Any Pending Studies at Discharge: No Discharge Instructions Given to Patient (Per Discharging Provider) Mr Peters. You came to the hospital after a fall. Evaluation noted right humerus fracture as well as fracture of of the pubic rami. You were evaluated by Orthopedic surgeon. No surgical intervention recommended at this time. Please use sling as instructed. Please ensure follow up with your Primary Doctor. Use tylenol as needed for pain. Use oxycodone as needed for pain not controlled by tylenol. It was a pleasure taking care of you. Total Time Total Time Spent Total Time Spent (In Minutes): 45 Total Time Includes: Examination of the Patient, Discharge Planning and Medication Reconciliation
== END 2022-09-25 15:06 | disposition home health service (06) | DRG 563 ==
LOC: ED 11:21 → EDINP 16:12 → SUATTDRO 16:12 → 2N 19:12